=== PATIENT | male | born 1990 | race African-American/Black ===

== ENCOUNTER 2018-08-11 14:15 | Emergency (ER) | payer OTHER ==
[~2018-08-11] VITALS: Ht 180.3 cm; Wt 117.9 kg
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
[2018-08-11 14:52] LABS: BASOPHILS # (AUTO) 0.1 /CMM (0.0-0.2); BASOPHILS % (AUTO) 0.7 % (0.0-2.0); EOSINOPHILS % (AUTO) 1.7 % (0.0-6.0); HEMATOCRIT 41 % (39-51); HEMOGLOBIN 13.9 g/dL (13.5-17.5); LYMPHOCYTES # (AUTO) 3.9 /CMM (0.8-4.8); LYMPHOCYTES % (AUTO) 36.6 % (20.0-44.0); MEAN CORPUSCULAR HGB CONC 34 g/dl (31.0-36.0); MEAN CORPUSCULAR VOLUME 83 fL (80-96); MONOCYTES # (AUTO) 0.8 /CMM (0.1-1.30); MONOCYTES % (AUTO) 7.3 % (2.0-12.0); NEUTROPHILS # (AUTO) 5.8 /CMM (1.8-8.9); NEUTROPHILS % (AUTO) 53.7 % (43.0-81.0); PLATELET COUNT (AUTO) 360 /CMM (150-450); RED BLOOD CELL COUNT(AUTO) 4.96 MIL/uL (4.5-6.0); WHITE BLOOD COUNT (AUTO) 10.7 K/uL (4.3-11.0)
[2018-08-11] MEDS ORDERED: MORPHINE SULFATE INJ 4 MG/ML DISP.SYRIN ONE (14:54)
[2018-08-11] MEDS ORDERED: ONDANSETRON HCL/PF 4 MG/2 ML VIAL ONE (14:54)
[2018-08-11 14:59] LABS: CALCIUM, SERUM 9.2 mg/dL (8.5-10.1); CREATININE 1.1 mg/dL (0.6-1.3)
[2018-08-11] MEDS ORDERED: MORPHINE SULFATE INJ 2 MG/ML DISP.SYRIN IV ONE (15:00)
[2018-08-11] MEDS ORDERED: ONDANSETRON HCL/PF 4 MG/2 ML VIAL IVP ONE (15:00)
[2018-08-11] MEDS ORDERED: IV NS 0.9% 1,000 ML BAG IV ONE (15:00)
[2018-08-11 15:05] LABS: ALBUMIN 3.4 g/dL (3.4-5.0); BILIRUBIN,DIRECT 0.1 mg/dL (0.0-0.2); BILIRUBIN,TOTAL 0.5 mg/dL (0.2-1.0); TOTAL PROTEIN, SERUM 7.3 g/dL (6.4-8.2)
--- NOTE | 2018-08-11 15:10 | NUR ---
URINE SAMPLE SENT TO LAB.
--- NOTE | 2018-08-11 15:14 | NUR ---
RECEIVED VERBAL ORDER FROM VINH AGUIRRE TO CHECK BS, CARRIED OUT
--- NOTE | 2018-08-11 15:16 | NUR ---
BS=46 MG/DL, MADE VINH AGUIRRE AWARE
[2018-08-11 15:17] LABS: APPEARANCE,URINE Clear (CLEAR); BILIRUBIN,URINE Negative (NEGATIVE); BLOOD, URINE Trace-intact Ery/uL (NEGATIVE); COLOR,URINE Yellow (YELLOW); KETONES,URINE Negative (NEGATIVE); LEUKOCYTE ESTERASE ,URINE Negative (NEGATIVE); NITRITE, URINE Negative (NEGATIVE); PH,URINE 8.5 (5.0-8.0); PROTEIN,URINE Trace mg/dl (NEGATIVE); UGLUCOSE Negative (NEGATIVE); UROBILINOGEN,URINE 0.2 EU/dL (0.2)
[2018-08-11] MEDS ORDERED: DEXTROSE 50%-WATER 50 ML DISP.SYRIN ONE (15:25)
[2018-08-11] MEDS ORDERED: IV D5W 50 ML IV ONE (15:30)
--- NOTE | 2018-08-11 15:37 | NUR ---
PROVIDED W SANDWICH AND ORANGE JUICE
[2018-08-11 15:39] LABS: BACTERIA,URINE Rare /HPF (None Seen); RBC,URINE 0-2 /HPF (0-2); SQUAMOUS EPITHELIAL CELL,UR Few /HPF (None Seen); WBC,URINE NONE SEEN /HPF (0-3)
--- NOTE | 2018-08-11 15:57 | NUR ---
RR=687UL/DL, MADE VINH AGUIRRE AWARE.
--- NOTE | 2018-08-11 16:01 | NUR ---
IV removed. Catheter intact and site benign. Pressure and 4x4 applied to site. No bleeding noted.Patient discharged to home in stable condition. Written and verbal after care instructions given. Patient verbalizes understanding of instruction.
[2018-08-11 16:04] VITALS: BP 119/71
[2018-08-11] MEDS ORDERED: DEXTROSE 50%-WATER 50 ML DISP.SYRIN IVP ONE (16:30)
== END 2018-08-11 16:05 | disposition home or self-care (01) ==
LOC: ER 14:21
DX: R10.11 Right upper quadrant pain (principal); E10.649 Type 1 diabetes mellitus with hypoglycemia without coma
CPT/HCPCS: 36415; 80048; 80076; 81001; 82962 ×2; 83690; 85025; 96374; 96375; 99283; J2270; J2405; J7030; J7060; 81000-TC

== ENCOUNTER 2018-08-15 08:42 | Emergency (ER) | payer OTHER ==
[~2018-08-15] VITALS: Ht 180.3 cm; Wt 122.0 kg
[2018-08-15 09:19] LABS: BASOPHILS # (AUTO) 0.1 /CMM (0.0-0.2); BASOPHILS % (AUTO) 1.3 % (0.0-2.0); EOSINOPHILS % (AUTO) 2.7 % (0.0-6.0); HEMATOCRIT 42 % (39-51); HEMOGLOBIN 13.7 g/dL (13.5-17.5); LYMPHOCYTES # (AUTO) 2.1 /CMM (0.8-4.8); LYMPHOCYTES % (AUTO) 31.7 % (20.0-44.0); MEAN CORPUSCULAR HGB CONC 33 g/dl (31.0-36.0); MEAN CORPUSCULAR VOLUME 85 fL (80-96); MONOCYTES # (AUTO) 0.6 /CMM (0.1-1.30); MONOCYTES % (AUTO) 8.4 % (2.0-12.0); NEUTROPHILS # (AUTO) 3.7 /CMM (1.8-8.9); NEUTROPHILS % (AUTO) 55.9 % (43.0-81.0); PLATELET COUNT (AUTO) 355 /CMM (150-450); RED BLOOD CELL COUNT(AUTO) 4.99 MIL/uL (4.5-6.0); WHITE BLOOD COUNT (AUTO) 6.7 K/uL (4.3-11.0)
[2018-08-15 09:25] LABS: CALCIUM, SERUM 8.8 mg/dL (8.5-10.1); CREATININE 1.1 mg/dL (0.6-1.3); POTASSIUM 4.5 mmol/L (3.5-5.1)
[2018-08-15 09:31] LABS: ALBUMIN 3.1 g/dL (3.4-5.0); BILIRUBIN,DIRECT 0.1 mg/dL (0.0-0.2); BILIRUBIN,TOTAL 0.5 mg/dL (0.2-1.0)
--- NOTE | 2018-08-15 12:27 | NUR ---
Patient discharged to home in stable condition. Written and verbal after care instructions given. Patient verbalizes understanding of instruction.
[2018-08-15 12:30] VITALS: BP 131/60
== END 2018-08-15 12:36 | disposition home or self-care (01) ==
LOC: ER 08:50
DX: R10.11 Right upper quadrant pain (principal); E10.9 Type 1 diabetes mellitus without complications
CPT/HCPCS: 36415; 71045-TC; 76705-TC; 80048-TC; 80076-TC; 83690-TC; 85025-TC; 85378-TC